=== PATIENT | male | born 1945 ===

== ENCOUNTER 2018-08-19 16:59 | Outpatient (CLI) | payer MEDICARE | END 2018-08-19 17:00 | disposition home or self-care (01) | LOC: C.RADIC 16:59 | DX: Z01.818 Encounter for other preprocedural examination (principal) ==

== ENCOUNTER 2018-09-03 07:47 | Day surgery (SDC) | payer MEDICARE ==
[~2018-09-03 07:47] MED LIST: Ciprofloxacin 0.3% OPTH SOLN OS SCH; Hyaluronidase Human, Recombi 150 U/ML VIAL ONE; Ketorolac Tromethamine 0.5% Opth Soln (3 ml) OS SCH; Lactated Ringer's 500 ML IV ONE; Lidocaine 2% MPF (5 ml) Inj ONE; Phenylephrine 2.5% Opht Soln OS SCH; Povidone Iodine Ophthalmic 5% Soln ONE; Tetracaine 0.5% Ophth (OR ONLY) ONE; Tropicamide 0.5% Opht Sol OS SCH; acetaZOLAMIDE 500 mg SR Cap PO ONE
[2018-09-03] MEDS ORDERED: Lactated Ringer's 500 ML IV ONE (08:15)
[2018-09-03 08:31] VITALS: RESP 18
[2018-09-03] MEDS ORDERED: Midazolam 2 MG/2 ML VIAL ONE (10:17)
[2018-09-03] MEDS: Chondroitin/Hyaluronate Opth Syringe KIT (0.55 ml-0.5 ml) IO ONE ×2 (10:21→10:32)
[2018-09-03] MEDS: Carbachol 0.01% IO ONE ×2 (10:21→10:35)
[2018-09-03] MEDS: Tobramycin/Dexamethasone OPHT OINT ONE ×2 (10:22→10:55)
[2018-09-03] MEDS ORDERED: Chondroitin/Hyaluronate 40 mg/ml-30 mg/ml Ophth Syringe (0.5 ml) IO ONE (10:42)
[2018-09-03] MEDS ORDERED: acetaZOLAMIDE 500 mg SR Cap PO ONE (11:00)
[2018-09-03 11:15] VITALS: BP 140/80; PULSE 88; TEMP 98; O2SAT 100
--- NOTE | 2018-09-03 13:05 | OP ---
PROCEDURE DATE: 09/03/2018 PREOPERATIVE DIAGNOSIS: Mature cataract, left eye. POSTOPERATIVE DIAGNOSIS: Mature cataract, left eye. OPERATIVE PROCEDURE: Phacoemulsification, left eye, insertion of posterior chamber lens implant. SURGEON: Vignesh Dumont MD CO-SURGEON: . ANESTHESIA TYPE: Local intravenous sedation. ANESTHESIOLOGIST: . PROCEDURE: The patient was brought into the operating room, placed in supine position, prepped and draped in the usual fashion for ophthalmic surgery. Lid speculum was inserted, lids and exposing globe. A side-port incision was made superiorly and inferiorly with a disposable sharp blade. Anterior chamber was filled with Viscoat. A near clear corneal incision was made temporally with a 2.75-mm keratome. Capsulorrhexis was then performed with Utrata forceps. Hydrodissection carried out with balanced salt solution. Nucleus was phacoemulsified. Remaining cortical fragments were removed with a split irrigation and aspiration system. The capsular sac was filled with Provisc. A posterior chamber lens was then injected into the capsular sac and rotated into horizontal position. Provisc was aspirated out of the anterior chamber. The pupil was constricted with Miochol. The wound was found to be watertight. Topical Betadine, Timoptic, and TobraDex ointment and pressure patch were applied. The patient tolerated the procedure well. Vignesh Dumont MD
== END 2018-09-03 11:55 | disposition home or self-care (01) ==
LOC: C.SDS 07:47
PROVIDERS: ATTEND Ophthalmology
DX: H25.12 Age-related nuclear cataract, left eye (principal)
CPT/HCPCS: 66984; J2250; J3010; J3470; J7120; V2632